=== PATIENT | male | born 2000 | race Two or more races ===

== ENCOUNTER 2021-10-12 19:27 | Emergency (ER) | payer MEDICAID ==
[2021-10-12] MEDS ORDERED: cefTRIAXone 500 MG Vial IM ONE (20:43)
[2021-10-12] MEDS ORDERED: Doxycycline 100 MG Tab PO ONE (20:50)
[2021-10-16 04:09] LABS: CHLAMYDIA TRACHOMATIS, NAA Positive (Negative); NEISSERIA GONORRHOEAE, NAA Positive (Negative)
== END 2021-10-12 21:26 | disposition home or self-care (01) ==
LOC: FB.ED 19:27
DX: A64 Unspecified sexually transmitted disease (principal); R82.81 Pyuria; Z79.899 Other long term (current) drug therapy
CPT/HCPCS: 36415; 80053; 81001; 85025; 86140; 87086; 87491; 87591; 96372; 99281; 99283; A9270-GY; J0696